=== PATIENT | female | born 1935 | race Caucasian/White ===

== ENCOUNTER 2024-06-30 17:32 | Emergency (ER) | payer MEDICARE | END 2024-06-30 18:35 | disposition home health service (06) | LOC: NAV ERS 17:32 | DX: S00.83XA Contusion of other part of head, initial encounter (principal); S09.90XA Unspecified injury of head, initial encounter; I10 Essential (primary) hypertension; E03.9 Hypothyroidism, unspecified; W18.12XA Fall from or off toilet with subsequent striking against object, initial encounter; Y93.89 Activity, other specified; Y92.002 Bathroom of unspecified non-institutional (private) residence as the place of occurrence of the external cause | CPT/HCPCS: 70450 ==